=== PATIENT | female | born 1995 | race Caucasian/White ===

== ENCOUNTER 2018-04-21 14:30 | Outpatient (RCR) | payer BC | END 2018-04-25 08:17 | disposition home or self-care (01) | LOC: MKS.ESL.PT 14:30 | DX: M79.10 Myalgia, unspecified site (principal); R32 Unspecified urinary incontinence; R35.0 Frequency of micturition; R39.11 Hesitancy of micturition; N30.10 Interstitial cystitis (chronic) without hematuria ==